=== PATIENT | male | born 1955 | race Caucasian/White ===

== ENCOUNTER → 2021-05-17 | Outpatient (CLI) | payer MEDICARE, OTHER ==
[~2021-05-17] MED LIST: ALBUTEROL2.5 MG/3 M INH; ATORVASTATIN CA20 MG PO; BRILINTA 90 MG90 MG PO; CELEBREX 200MG200 MG PO; EPIPEN 2-P0.3 MG/0.3 INJ; FENOFIBRATE160 MG PO; GLUCOPHAGE XR500 MG PO; JARDIANCE25 MG PO; LIPITOR TAB 1010 MG PO; LISINOPRIL5 MG PO; LOPRESSOR 25 MG25 MG PO; NITROSTAT0.4 MG SL; NOVOLOG FL100 UNIT/1 SC; OMEPRAZOLE40 MG PO; SINGULAIR10 MG PO; SYNTHROID100 MCG PO; TOUJEO MAX300 UNIT/1 SQ; VALSARTAN-HCTZ1 EACH PO; VENTOLIN HFA 66.7 GM INH
[2021-05-17 06:59] LABS: HEMOGLOBIN 16.4 gm/dl (14.0-17.5); RED BLOOD COUNT 5.19 M/UL (4.20-5.50); WHITE BLOOD COUNT 7.6 K/UL (4.5-11.0)
[2021-05-17 13:37] LABS: BUN/CREATININE RATIO 21 (0-10)
== END ==
LOC: LAB 06:37
PROVIDERS: Internal Medicine
DX: N40.0 Benign prostatic hyperplasia without lower urinary tract symptoms (principal); E11.9 Type 2 diabetes mellitus without complications
CPT/HCPCS: 36415; 80048; 80061; 80076; 83036; 84153; 84443; 85025